=== PATIENT | female | born 1985 | race American Indian/Alaskan Native ===

== ENCOUNTER 2019-05-20 14:09 | Outpatient (CLI) | payer MEDICAID ==
[2019-05-20 21:20] VITALS: BP 111/68
--- NOTE | 2019-05-22 07:08 | Event Note ---
Date: 05/22/19 Late entry for 05/20/19: Term patient in triage to rule out labor. Was asked to speak with patient; briefly spoke with patient but turned over her care to MD as CNM was sick on this date.
== END 2019-05-20 21:30 | disposition home or self-care (01) ==
LOC: TRG 14:09
PROVIDERS: ATTEND Obstetrics & Gynecology
DX: O47.1 False labor at or after 37 completed weeks of gestation (principal); Z3A.37 37 weeks gestation of pregnancy
CPT/HCPCS: 59025

== ENCOUNTER 2019-05-26 09:53 | Outpatient (CLI) | payer MEDICAID ==
[2019-05-26 10:31] VITALS: BP 116/73
[2019-05-26] MEDS ORDERED: LACTATED RINGERS 500 ML IV ONE (11:09)
== END 2019-05-26 11:19 | disposition home or self-care (01) ==
LOC: TRG 09:53
PROVIDERS: ATTEND Obstetrics & Gynecology
DX: O47.1 False labor at or after 37 completed weeks of gestation (principal); Z3A.38 38 weeks gestation of pregnancy
CPT/HCPCS: 59025

== ENCOUNTER 2019-05-27 01:59 | Inpatient (IN) | payer MEDICAID ==
[2019-05-27] MEDS ORDERED: TERBUTALINE 1 MG/1 ML INJ SUB-Q PRN (02:38)
[2019-05-27] MEDS ORDERED: TERBUTALINE 1 MG/1 ML INJ IVP PRN (02:38)
[2019-05-27] MEDS ORDERED: AMPICILLIN/NS 2 GM/100 ML 2 GM/100 ML BAG IV ONE (02:38)
[2019-05-27] MEDS ORDERED: MINERAL OIL 30 ML ORAL LIQD PO PRN (02:38)
[2019-05-27] MEDS ORDERED: ePHEDrine SULFATE 50 MG/1 ML INJ IV PRN ×2 (02:38→04:51)
[2019-05-27] MEDS ORDERED: fentaNYL 100 MCG/2 ML INJ IV PRN (02:38)
[2019-05-27] MEDS ORDERED: LIDOCAINE (2%) 20 MG/1 ML VIAL 20 ML MDV INFILTRATI ONE (02:38)
[2019-05-27] MEDS: LACTATED RINGERS 1,000 ML IV SCH ×2 (03:11→04:37)
[2019-05-27 03:13] LABS: Hematocrit 34.3 % (30.3-42.9); Hemoglobin 11.4 gm/dl (10.1-14.3); Mean Corpuscular HGB Conc 33 % (30-34); Mean Corpuscular Volume 86 fl (79-97); Platelet Count 384 K/mm3 (140-440); Red Blood Count 4.01 M/mm3 (3.65-5.03)
[2019-05-27] MEDS ORDERED: SODIUM CHLORIDE 0.9% IV ONE (03:35)
[2019-05-27] MEDS ORDERED: AZITHROMYCIN IV ONE (03:35)
[2019-05-27] MEDS ORDERED: NALOXONE 2 MG/2 ML INJ IV PRN (04:51)
--- NOTE | 2019-05-27 04:53 | Anesthesia Consultation ---
Anesthesia Consult and Med Hx Date of service: 05/27/19 - Airway Anesthetic Teeth Evaluation: Good ROM Head & Neck: Adequate Mental/Hyoid Distance: Adequate Mallampati Class: Class II Intubation Access Assessment: Probably Good - Pulmonary Exam CTA: Yes - Cardiac Exam Cardiac Exam: RRR - Pre-Operative Health Status ASA Pre-Surgery Classification: ASA2 Proposed Anesthetic Plan: Epidural - Pulmonary Hx Smoking: No Hx Asthma: No Hx Respiratory Symptoms: No SOB: No COPD: No Home Oxygen Therapy: No Hx Pneumonia: No Hx Sleep Apnea: No - Cardiovascular System Hx Hypertension: No Hx Coronary Artery Disease: No Hx Heart Attack/AMI: No Hx Angina: No Hx Percutaneous Transluminal Coronary Angioplasty (PTCA): No Hx Cardia Arrhythmia: No Hx Pacemaker: No Hx Internal Defibrillator: No Hx Valvular Heart Disease: No Hx Heart Murmur: No Hx Peripheral Vascular Disease: No - Central Nervous System Hx Neuromuscular Disorder: No Hx Seizures: No CVA: No Hx Back Pain: No Hx Psychiatric Problems: No - Gastrointestinal Hx Ulcer: No Hx Gastroesophageal Reflux Disease: No - Endocrine Hx Renal Disease: No Hx End Stage Renal Disease: No Hx Cirrhosis: No Hx Liver Disease: No Hx Insulin Dependent Diabetes: No Hx Non-Insulin Dependent Diabetes: No Hx Thyroid Disease: No Hx Hypothyroidism: No Hx Hyperthyroidism: No - Hematic Hx Anemia: No Hx Sickle Cell Disease: No - Other Systems Hx Alcohol Use: No Hx Substance Use: No Hx Cancer: No Hx Obesity: Yes
[2019-05-27] MEDS ORDERED: fentaNYL-BUPIV 2 MCG/ML-0.125% 200 MCG/100 ML BAG EPIDURAL SCH (05:00)
[2019-05-27] MEDS ORDERED: BUPIVACAINE/PF (0.25%) 2.5 MG/ML 10 ML VIAL INFILTRATI ONE ×2 (05:03→06:09)
[2019-05-27] MEDS ORDERED: AMPICILLIN/NS 1 GM/50 ML 1 GM/50 ML BAG IV SCH (06:39)
--- NOTE | 2019-05-27 06:46 | History and Physical Report ---
History of Present Illness Date of examination: 05/27/19 Date of admission: 05/27/19 02:41 Chief complaint: RUC's History of present illness: Pt is a 34yo BF EDC 06/05/19; EGA 38 5/7 weeks presents to L&D complaining of RUC's q 3-4 mins. She received late care at [facility] since 37 weeks with + Chlamydia - untreated. records not available at time of delivery, but available now. GBS is Negative. Past History Past Medical History: no pertinent history Past Surgical History: no surgical history Family/Genetic History: none Social history: no significant social history, single - Obstetrical History Expected Date of Delivery: 06/05/19 Actual Gestation: 38 Week(s) 5 Day(s) : 6 Medications and Allergies Allergies Allergy/AdvReac Type Severity Reaction Status Date / Time No Known Allergies Allergy Verified 05/27/19 02:23 Home Medications Medication Instructions Recorded Confirmed Last Taken Type Azithromycin [Zithromax TAB] 500 mg PO QDAY 1 Days #2 tablet 05/26/19 Unknown Rx Active Meds: Active Medications Ephedrine Sulfate (Ephedrine Sulfate) 10 mg IV Q2M PRN PRN Reason: Hypotension Ephedrine Sulfate (Ephedrine Sulfate) 10 mg IV Q2M PRN PRN Reason: Hypotension Fentanyl (Sublimaze) 100 mcg IV Q2H PRN PRN Reason: Labor Pain Oxytocin/Sodium Chloride (Pitocin/Ns 20 Unit/1000ml Drip) 20 units in 1,000 mls @ 125 mls/hr IV DIRECT MICHAEL Lactated Ringer's (Lactated Ringers) 1,000 mls @ 125 mls/hr IV DIRECT MICHAEL Last Admin: 05/27/19 04:37 Dose: 125 mls/hr Documented by: Ampicillin Sodium (Ampicillin/Ns 1 Gm/50 Ml) 1 gm in 50 mls @ 100 mls/hr IV Q4HR MICHAEL; Protocol Azithromycin 1,000 mg/ Sodium (Chloride) 250 mls @ 250 mls/hr IV Q24HR MICHAEL Fentanyl/Bupivacaine/Sodium Chlor (Fentanyl-Bupiv 2 Mcg/Ml-0.125%) 200 mcg in 100 mls @ 12 mls/hr EPIDURAL TITR MICHAEL; Protocol Last Admin: 05/27/19 05:00 Dose: 12 mls/hr Documented by: Mineral Oil (Mineral Oil) 30 ml PO QHS PRN PRN Reason: Constipation Naloxone HCl (Naloxone) 0.2 mg IV Q5M PRN PRN Reason: Respiratory sedation Terbutaline Sulfate (Brethine) 0.25 mg SUB-Q ONCE PRN PRN Reason: Hyperstimulation/Hypertonicity Terbutaline Sulfate (Brethine) 0.25 mg IVP ONCE PRN PRN Reason: Hyperstimulation/Hypertonicity Review of Systems All systems: negative - Vital Signs Vital signs: Vital Signs Pulse BP 77 124/76 05/27/19 02:17 05/27/19 02:17 Temp Pulse Resp BP Pulse Ox 70 109/58 98 05/27/19 06:38 05/27/19 06:37 05/27/19 06:38 - Physical Exam Breasts: Positive: deferred Cardiovascular: Regular rate Lungs: Positive: Clear to auscultation Abdomen: Positive: normal appearance Genitourinary (Female): Positive: normal external genitalia Vagina: Positive: normal moisture Uterus: Positive: enlarged Extremities: Positive: normal - Obstetrical FHR: category 1 Uterine Contraction Monitor Mode: External Cervical Dilatation: 10 Cervical Effacement Percentage: 100 station: +2 Uterine Contraction Pattern: Regular Uterine Tone Measurement Phase: Contraction Uterine Contraction Intensity: Strong/Firm Results Result Diagrams: 05/27/19 02:30 All other labs normal. Assessment and Plan - Patient Problems (1) 38 weeks gestation of Onset Date: 05/27/19 Current Visit: Yes Status: Acute Plan to address problem: A: IUP @ 38 5/7 weeks in labor Unknown GBS Untreated Chlamydia P: Admit to L&D for expectant vaginal delivery IV Ampicillin IV Zithromax Obtain records (2) Active labor at term Onset Date: 05/27/19 Current Visit: Yes Status: Acute
--- NOTE | 2019-05-27 06:52 | Procedure Note ---
OB Delivery Note - Delivery Date of Delivery: 05/27/19 Surgeon: DAYDAY RIVAS Estimated blood loss: 200cc - Vaginal Delivery presentation: vertex Delivery position: OA Intrapartum events: precipitous labor- <3hr Delivery induction: none Delivery augmentation: rupture of membranes Delivery monitor: external FHT, external uterine Route of delivery: Delivery placenta: spontaneous Delivery cord: 3 umbilical vessels Episiotomy: none Delivery laceration: none Anesthesia: epidural Delivery comments: Infant delivered OA and placed on Mom's chest for [id number] bonding and delayed cord clamping, cut by Dad - Infant A at 1 minute: 8 at 5 minutes: 9 Infant Gender: Female (3060gms)
[2019-05-27] MEDS ORDERED: WITCH HAZEL/ GLYCERIN PAD TP PRN (06:53)
[2019-05-27] MEDS ORDERED: ONDANSETRON 4 MG/2 ML INJ IV PRN (06:53)
[2019-05-27] MEDS ORDERED: ACETAMINOPHEN 325 MG TAB PO PRN (06:53)
[2019-05-27] MEDS ORDERED: PROMETHAZINE 25 MG TAB PO PRN (06:53)
[2019-05-27] MEDS ORDERED: MAGNESIUM HYDROXIDE (MOM) ORAL LIQD UDC PO PRN (06:53)
[2019-05-27] MEDS ORDERED: diphenhydrAMINE 25 MG CAP PO PRN (06:53)
[2019-05-27] MEDS ORDERED: LANOLIN/ZINC/DIMETHICONE (LANSINOH) 7 GM TP PRN (06:53)
[2019-05-27] MEDS ORDERED: HYDROcodone/ACETAMINOPHEN 5-325 MG TAB PO PRN (06:53)
[2019-05-27] MEDS ORDERED: PROMETHAZINE 25 MG RECT SUPP PR PRN (06:53)
[2019-05-27] MEDS ORDERED: OXYTOCIN 20 UNIT/1000ML DRIP 20 UNITS/1,000 ML BAG IV SCH (07:00)
[2019-05-27] MEDS: OXYTOCIN 20 UNIT/1000ML DRIP 20 UNITS/1,000 ML BAG IV SCH ×2 (08:34→08:37)
[2019-05-27] MEDS: IBUPROFEN 600 MG TAB PO SCH ×2 (10:58→17:01)
[2019-05-27] MEDS: PRENATAL VIT27-FE FUMARATE-FOLIC ACID VIT TAB PO SCH (10:58)
[2019-05-27] MEDS: FERROUS SULFATE 325 MG TAB PO SCH ×2 (10:58→21:36)
[2019-05-27] MEDS: DOCUSATE SODIUM 100 MG CAP PO SCH ×2 (10:58→21:36)
[2019-05-27 19:38] LABS: Hematocrit 32.7 % (30.3-42.9); Hemoglobin 10.8 gm/dl (10.1-14.3)
[2019-05-28] MEDS: IBUPROFEN 600 MG TAB PO SCH ×2 (03:19→12:19)
[2019-05-28] MEDS ORDERED: TETANUS,DIPH,PERTUSS(ACELL) VACCINE 0.5 ML SYRINGE IM ONE (06:00)
[2019-05-28] MEDS ORDERED: MEASLES, MUMPS & RUBELLA 12,500 UNIT/0.5 ML VACCINE SUB-Q ONE (06:00)
--- NOTE | 2019-05-28 09:11 | Progress Note ---
Assessment and Plan - Patient Problems (1) 38 weeks gestation of Onset Date: 05/27/19 Current Visit: Yes Status: Resolved (2) Active labor at term Onset Date: 05/27/19 Current Visit: Yes Status: Resolved (3) (normal spontaneous vaginal delivery) Onset Date: 05/28/19 Current Visit: No Status: Resolved Plan to address problem: A: S/P - PPD #1 Doing well Asymptomatic anemia - stable P: May go home today. Subjective - Subjective Date of service: 05/28/19 Principal diagnosis: s/p - PPD #1 Interval history: Pt is feeling well without complaints. Bleeding improved. Patient reports: appetite normal, voiding normally, pain well controlled, flatus, ambulating normally, no dizzy ambulation, no nauseated [place]: doing well, nursing well, bottle feeding Objective - Vital Signs Latest vital signs: Vital Signs Temp Pulse Resp BP BP Pulse Ox 05/28/19 00:46 98.0 F 64 20 100/51 99 05/27/19 10:30 97.9 F 69 18 115/68 98 05/27/19 09:26 98.0 F 77 120/72 Intake and Output 05/27/19 05/28/19 05/28/19 22:59 06:59 14:59 Intake Total 480 Balance 480 Intake: Oral 480 Other: Total, Intake Amount 240 # Voids Void 1 - Exam Breasts: Present: deferred Abdomen: Present: normal appearance, soft Uterus: Present: normal, firm, fundal height below umbilicus Extremities: Present: normal - Labs Labs: Laboratory Tests 05/27/19 05/27/19 05/27/19 02:30 02:30 07:28 WBC 8.6 RBC 4.01 Hgb 11.4 Hct 34.3 MCV 86 MCH 29 MCHC 33 RDW 15.0 Plt Count 384 Syphilis IgG Antibody Non-reactive Blood Type B POSITIVE Antibody Screen Negative 05/27/19 19:20 WBC RBC Hgb 10.8 Hct 32.7 MCV MCH MCHC RDW Plt Count Syphilis IgG Antibody Blood Type Antibody Screen
[2019-05-28] MEDS ORDERED: SODIUM CHLORIDE 0.9% IV SCH (10:00)
[2019-05-28] MEDS ORDERED: AZITHROMYCIN IV SCH (10:00)
--- NOTE | 2019-05-28 10:31 | Discharge Summary ---
Providers - Providers Date of Admission: 05/27/19 02:41 Date of discharge: 05/28/19 Attending physician: DAYDAY RIVAS Primary care physician: DAYDAY RIVAS Hospitalization Reason for admission: active labor, rupture of membranes, IUP at term Delivery: Episiotomy: none Laceration: none Other procedures: none complications: none Discharge diagnosis: IUP at term delivered [place] baby: female Hospital course: Unremarkable. Condition at discharge: Good Disposition: DC-01 TO HOME OR SELFCARE - Discharge Diagnoses (1) 38 weeks gestation of Status: Resolved (2) Active labor at term Status: Resolved (3) (normal spontaneous vaginal delivery) Status: Resolved Plan - Discharge Medications Prescriptions: Ferrous Sulfate [Feosol 325 MG tab] 325 mg PO BID #60 tablet Ibuprofen [Motrin 600 MG tab] 600 mg PO Q6H #30 tablet Vit-Fe Fumar-FA [ Vitamin] 1 each PO QDAY #30 tablet - Provider Discharge Summary Activity: routine, no sex for 6 weeks, no heavy lifting 4 weeks, no strenuous exercise Diet: routine Instructions: routine Additional instructions: [] Smoking cessation referral if applicable(refer to patient education folder for contact #) [] Refer to [facility] Booklet Call your doctor immediately for: * Fever > 100.5 * Heavy vaginal bleeding ( >1 pad per hour) * Severe persistent headache * Shortness of breath * Reddened, hot, painful area to leg or breast * Drainage or odor from incision. * Keep incision clean and dry at all times and follow doctor's instructions regarding bathing/showering - Follow up plan Follow up: DAYDAY RIVAS MD [Primary Care Provider] - 6 Weeks CARMEN GARCIA MD [Referring] - 6 Weeks
[2019-05-28] MEDS: PRENATAL VIT27-FE FUMARATE-FOLIC ACID VIT TAB PO SCH (12:15)
[2019-05-28] MEDS: FERROUS SULFATE 325 MG TAB PO SCH (12:15)
[2019-05-28] MEDS: DOCUSATE SODIUM 100 MG CAP PO SCH (12:18)
[2019-05-28 17:52] VITALS: BP 108/68
== END 2019-05-28 16:00 | disposition home or self-care (01) | DRG 774 ==
LOC: TRG 01:59 → LD 02:41 → OB 09:54
PROVIDERS: ADMIT Obstetrics & Gynecology; ATTEND Obstetrics & Gynecology
PROC: 10E0XZZ Delivery of Products of Conception, External Approach (ICD-10-PCS; principal; 2019-05-27)
PROC: 3E0R3BZ Introduction of Anesthetic Agent into Spinal Canal, Percutaneous Approach (ICD-10-PCS; 2019-05-27)
PROC: 00HU33Z Insertion of Infusion Device into Spinal Canal, Percutaneous Approach (ICD-10-PCS; 2019-05-27)
PROC: 3E0234Z Introduction of Serum, Toxoid and Vaccine into Muscle, Percutaneous Approach (ICD-10-PCS; 2019-05-28)
PROC: 3E0134Z Introduction of Serum, Toxoid and Vaccine into Subcutaneous Tissue, Percutaneous Approach (ICD-10-PCS; 2019-05-28)
DX: O62.3 Precipitate labor (principal); O98.82 Other maternal infectious and parasitic diseases complicating childbirth; Z37.0 Single live birth; Z3A.38 38 weeks gestation of pregnancy; O90.81 Anemia of the puerperium; Z23 Encounter for immunization
CPT/HCPCS: 36415; 59025; 85014; 85018; 85027; 86592; 86850; 86900; 86901; G0378; J0290; J0456; J2590; J7050; J7120